=== PATIENT | male | born 1945 | race Caucasian/White ===

== ENCOUNTER 2021-02-26 10:14 | Emergency (ER) | payer MEDICARE, SELFPAY ==
[2021-02-26 10:28] VITALS: BP 143/59; PULSE 58; RESP 16; TEMP 36.3; O2SAT 100
--- NOTE | 2021-02-26 10:52 | ED.EAR ---
HPI - Ear Problem General Chief complaint: Ear Stated complaint: Ear Pain Time Seen by Provider: 02/26/21 10:52 Source: patient Mode of arrival: ambulatory Limitations: no limitations History of Present Illness HPI Narrative: Mina Albrecht is a 75 yo male with a PMH of anxiety, hypertension, depression, diabetes, GERD, high cholesterol, who comes with trouble hearing out of both ears - here for an ear flush. No pain, no other symptoms except muffled hearing Related Data Home Medications Medication Instructions Recorded Confirmed alprazolam 02/26/21 amlodipine 02/26/21 blood-glucose sensor [Dexcom G6 02/26/21 02/26/21 Sensor] blood-glucose transmitter [Dexcom 02/26/21 02/26/21 G6 Transmitter] escitalopram oxalate mg 02/26/21 hydrochlorothiazide 02/26/21 insulin aspart U-100 [Novolog 02/26/21 U-100 Insulin aspart] levothyroxine 02/26/21 metoprolol succinate PO 02/26/21 omeprazole 02/26/21 potassium chloride meq PO 02/26/21 simvastatin mg 02/26/21 valsartan 02/26/21 Allergies Allergy/AdvReac Type Severity Reaction Status Date / Time No Known Allergies Allergy Unknown Verified 11/23/15 14:02 Review of Systems Review of Systems: CONSTITUTIONAL: Denies fever, chills, sweats. EYES: Denies visual changes, redness, discharge. Bilateral ear flush ENT: Denies rhinorrhea, congestion, sore throat, otalgia. CARDIOVASCULAR: Denies chest pain, palpitations, edema. RESPIRATORY: Denies dyspnea, wheezing, cough GASTROINTESTINAL: Denies abdominal pain, nausea, vomiting, diarrhea. GENITOURINARY: Denies dysuria, hematuria, abnormal discharge SKIN: Denies rash or itching. NEUROLOGIC: Denies numbness, or focal weakness. PSYCHIATRIC: Denies anxiety or depression. PMFSH Past Medical History Medical History Anxiety Depression GERD (gastroesophageal reflux disease) High cholesterol Hypertension Family History Family History Other Hypertension Social History Social History (Updated 02/26/21 @ 10:57 by Ruba Lucio CNP) Smoking status: Former smoker Alcohol intake: current Comments At time of signature, I agree with nursing past medical, surgical, social and family history. There is no relevant family history pertinent to the presenting complaint. Exam Narrative: GENERAL: This is a well-nourished, well-developed patient, in mild distress. HEAD: normocephalic, atraumatic. EYES: PERRL. Sclera clear/white. Vision is grossly intact. EARS: External ears normal, auditory canals have old earwax in the left and some earwax on right and without drainage, no pain . Hearing grossly intact. NOSE: External nose normal without nasal discharge, nares without redness, no rhinorrhea. THROAT: Mucous membranes moist, NECK: Neck supple, non-tender CARDIOVASCULAR: Regular rate and rhythm without murmurs, gallops, or rubs. RESPIRATORY: Clear to auscultation. Breath sounds equal bilaterally. No wheezes, rales, or rhonchi. GASTROINTESTINAL: Abdomen soft, SKIN: warm, intact with no suspicious lesions or rash, good texture and turgor. NEURO: awake, alert, and oriented to person, place and time. There were no obvious focal neurologic abnormalities. Steady gait EXTREMITIES: Normal range of motion. BACK: Nontender without deformity Course Course Emergency Course: Patient has no symptoms other some difficulty hearing, no pain, no redness Flushing of bilateral ears told patient start using Debrox and that he should follow-up with ENT Vital Signs Vital signs: Vital Signs Temperature 97.4 F L 02/26/21 10:28 Pulse Rate 58 L 02/26/21 10:28 Respiratory Rate 16 02/26/21 10:28 Blood Pressure 143/59 H 02/26/21 10:28 Pulse Oximetry 100 02/26/21 10:28 Temperature 97.4 F L 02/26/21 10:28 Pulse Rate 58 L 02/26/21 10:28 Respiratory Rate 16 02/26/21 10:28 Blood Pressure 143/59
--- NOTE | 2021-02-26 11:11 | PC.NURSE ---
ear irrigaton set up done at 1100
== END 2021-02-26 11:42 | disposition home or self-care (01) ==
PROVIDERS: Emergency Provider Nurse Practitioner
DX: H61.23 Impacted cerumen, bilateral (principal); K21.9 Gastro-esophageal reflux disease without esophagitis; E78.00 Pure hypercholesterolemia, unspecified; I10 Essential (primary) hypertension; Z87.891 Personal history of nicotine dependence
CPT/HCPCS: 69209; 99213; G0463

== ENCOUNTER → 2021-08-03 12:01 | Outpatient (CLI) | payer MEDICARE, SELFPAY ==
--- NOTE | ~2021-08-03 | XR_ITS ---
EXAM: XR lumbar spine min 4V HISTORY: Lumbar back pain COMPARISON: None available FINDINGS: Lung bases clear. Normal bowel gas pattern. 5 nonrib-bearing lumbar-type vertebral bodies with intact pedicles. Vertebral body heights preserved. No pars defect. Multilevel facet narrowing an d sclerosis. Moderate disc space narrowing at L5-S1. Abdominal aortic calcification without aneurysm. IMPRESSION: Moderate degenerative disc disease at L5-S1. Multilevel moderate facet arthropathy. Reviewed, dictated and finalized at location K. IMPRESSION: Moderate degenerative disc disease at L5-S1. Multilevel moderate facet arthropa thy.
== END ==
DX: M51.37 Other intervertebral disc degeneration, lumbosacral region (principal)
CPT/HCPCS: 72110